=== PATIENT | female | born 1990 | race Caucasian/White ===

== ENCOUNTER 2016-09-24 10:06 | Emergency (ER) | payer MEDICAID, OTHER, SELFPAY ==
[~2016-09-24] VITALS: Ht 170.2 cm; Wt 66.0 kg
[2016-09-24] MEDS ORDERED: ALBU90AE INH (11:00)
[2016-09-24] MEDS ORDERED: NORG1TAB29 PO (11:12)
[2016-09-24 11:55] LABS: BLOOD UREA NITROGEN 10 mg/dL (7-18)
[2016-09-24 12:02] LABS: IS PT STATUS REG ER OR PRE ER? YES
[2016-09-24 13:44] VITALS: BP 123/73
== END 2016-09-24 13:46 | disposition home or self-care (01) ==
LOC: ED 12:02
DX: R00.2 Palpitations (principal); R42 Dizziness and giddiness; R07.9 Chest pain, unspecified
CPT/HCPCS: 36415; 71010; 80048; 81001; 82040; 84439; 84443; 84484; 84703; 85025; 87086; 93005; 99285

== ENCOUNTER → 2019-12-31 | Outpatient (CLI) | payer OTHER ==
[~2019-12-31] MED LIST: ALBU90AE INH; NORG1TAB29 PO
== END | disposition home or self-care (01) ==
LOC: STAR 15:45
PROVIDERS: ATTEND Obstetrics & Gynecology
DX: Z01.812 Encounter for preprocedural laboratory examination (principal); Z20.828 Contact with and (suspected) exposure to other viral communicable diseases
CPT/HCPCS: 36415; 87635

== ENCOUNTER 2020-01-02 18:27 | Outpatient (CLI) | payer OTHER ==
[~2020-01-02] VITALS: Ht 170.2 cm; Wt 85.4 kg
== END 2020-01-02 21:18 | disposition home or self-care (01) ==
LOC: LDOP 18:27
PROVIDERS: ATTEND Obstetrics & Gynecology
DX: O26.893 Other specified pregnancy related conditions, third trimester (principal); R10.9 Unspecified abdominal pain; Z3A.39 39 weeks gestation of pregnancy
CPT/HCPCS: 59025

== ENCOUNTER 2020-01-04 09:16 | Inpatient (IN) | payer OTHER ==
[~2020-01-04] VITALS: Ht 167.6 cm; Wt 81.8 kg
[2020-01-04] MEDS ORDERED: PROMETHAZINE 25 MG/ML, 1ML IM ONE (09:30)
[2020-01-04] MEDS ORDERED: MEPERIDINE/PF 100 MG/ML IM PRN (09:30)
[2020-01-04] MEDS ORDERED: PROMETHAZINE 25 MG/ML, 1ML ONE (09:40)
[2020-01-04] MEDS ORDERED: MEPERIDINE/PF 100 MG/ML ONE (09:40)
[2020-01-04 09:59] VITALS: BP 122/73
[2020-01-04] MEDS ORDERED: PLEASE ENTER HEIGHT AND WEIGHT MC SCH (10:00)
[2020-01-04] MEDS ORDERED: MISOPROSTOL 200 MCG TABLET ONE (12:09)
[2020-01-04] MEDS ORDERED: FENTANYL PF 100 MCG/2ML ONE (12:09)
[2020-01-04] MEDS ORDERED: NEWBORN KIT ONE (12:09)
[2020-01-04] MEDS ORDERED: LIDOCAINE 1%, 20ML ONE (12:09)
[2020-01-04] MEDS ORDERED: OXYTOCIN 30U/ 0.9% NaCL 500ML 500 ML ONE (12:10)
[2020-01-04] MEDS ORDERED: METOCLOPRAMIDE 5 MG/ML, 2ML IVPush PRN (12:30)
[2020-01-04] MEDS ORDERED: ONDANSETRON 2MG/ML, 2ML IVPush PRN (12:30)
[2020-01-04] MEDS ORDERED: FENTANYL PF 100 MCG/2ML IVPush PRN (12:30)
[2020-01-04] MEDS ORDERED: FENTANYL PF 100 MCG/2ML IV PRN (12:30)
[2020-01-04] MEDS ORDERED: LACTATED RINGERS 1,000 ML IV SCH ×2 (12:30→13:30)
[2020-01-04] MEDS ORDERED: D5%-LACTATED RINGERS 1,000 ML IV SCH (12:30)
[2020-01-04] MEDS ORDERED: TERBUTALINE 1 MG/ML, 1ML SQ PRN (12:30)
[2020-01-04] MEDS ORDERED: CALCIUM CARBONATE 500 MG TAB.CHEW PO PRN (12:30)
[2020-01-04] MEDS ORDERED: OXYTOCIN 30U/ 0.9% NaCL 500ML 500 ML IV PRN ×2 (12:30→20:30)
[2020-01-04] MEDS ORDERED: OXYTOCIN 30U/ 0.9% NaCL 500ML 500 ML IV ONE (12:30)
[2020-01-04] MEDS ORDERED: TERBUTALINE 1 MG/ML, 1ML IVPush PRN (12:30)
[2020-01-04] MEDS ORDERED: SODIUM CITRATE/CITRIC ACID 30 ML UDC PO PRN (12:30)
[2020-01-04 12:32] LABS: BASOPHILS % (AUTO) 0 % (0-1); EOSINOPHILS % (AUTO) 0 % (1-7); LYMPHOCYTES % (AUTO) 7 % (22-44); MEAN CORPUSCULAR HEMOGLOBIN 29.2 pg (27.0-34.8); MEAN CORPUSCULAR HGB CONC 32.9 g/dL (32.4-35.8); MEAN PLATELET VOLUME 7.3 fL (7.4-10.4); MONOCYTES % (AUTO) 3 % (2-9); NEUTROPHILS % (AUTO) 90 % (42-75); PLATELET COUNT 364 x10^3/uL (130-400); RED BLOOD COUNT 4.75 x10^6/uL (3.82-5.3); RED CELL DISTRIBUTION WIDTH 13.8 % (9.6-15.2)
[2020-01-04] MEDS ORDERED: FENTANYL/BUPIV./NS/PF 250 ML EPIDCONT ONE (12:48)
[2020-01-04] MEDS ORDERED: BUPIVACAINE 0.25% ONE ×4 (12:48→21:23)
[2020-01-04 13:01] LABS: MD SCAN
[2020-01-04] MEDS ORDERED: ONDANSETRON 2MG/ML, 2ML ONE (13:21)
[2020-01-04] MEDS ORDERED: EPHEDRINE 50 MG/ML, 1ML ONE (13:27)
[2020-01-04] MEDS ORDERED: EPHEDRINE 50 MG/ML, 1ML IVPush PRN (13:30)
[2020-01-04] MEDS ORDERED: FENTANYL/BUPIV./NS/PF 250 ML EPIDCONT SCH (13:30)
[2020-01-04] MEDS ORDERED: LACTATED RINGERS 1,000 ML IVBOLUS PRN (13:30)
[2020-01-04 19:35] VITALS: BP 129/89
[2020-01-05] MEDS ORDERED: MISOPROSTOL 200 MCG TABLET PR PRN ×6 (00:30→01:00)
[2020-01-05] MEDS ORDERED: OXYcodone IR 5MG TABLET PO PRN ×5 (00:30)
[2020-01-05] MEDS ORDERED: SIMETHICONE 80 MG CHEW TAB PO PRN ×11 (00:30→01:00)
[2020-01-05] MEDS ORDERED: ACETAMINOPHEN 325 MG TABLET PO PRN ×7 (00:30→01:00)
[2020-01-05] MEDS ORDERED: ONDANSETRON 2MG/ML, 2ML IV PRN ×6 (00:30→01:00)
[2020-01-05] MEDS ORDERED: IBUPROFEN 600 MG TABLET PO PRN ×5 (00:30)
[2020-01-05] MEDS ORDERED: OXYTOCIN 30U/ 0.9% NaCL 500ML 500 ML IV SCH ×10 (00:30)
[2020-01-05] MEDS ORDERED: OXYcodone/APAP 5/325MG TABLET PO PRN ×6 (00:30→01:00)
[2020-01-05] MEDS ORDERED: DOCUSATE 100 MG CAPSULE PO PRN ×10 (00:30)
[2020-01-05] MEDS: OXYTOCIN 30U/ 0.9% NaCL 500ML 500 ML IV SCH ×3 (01:00→21:00)
[2020-01-05] MEDS ORDERED: IBUPROFEN 600 MG TABLET ONE (01:30)
[2020-01-05] MEDS: IBUPROFEN 600 MG TABLET PO PRN ×3 (01:32→16:15)
[2020-01-05 02:25] VITALS: BP 110/71
[2020-01-05 07:50] LABS: BASOPHILS % (AUTO) 1 % (0-1); EOSINOPHILS % (AUTO) 0 % (1-7); LYMPHOCYTES % (AUTO) 10 % (22-44); MEAN CORPUSCULAR HEMOGLOBIN 29.8 pg (27.0-34.8); MEAN CORPUSCULAR HGB CONC 33.6 g/dL (32.4-35.8); MEAN PLATELET VOLUME 6.8 fL (7.4-10.4); MONOCYTES % (AUTO) 7 % (2-9); NEUTROPHILS % (AUTO) 82 % (42-75); PLATELET COUNT 308 x10^3/uL (130-400); RED BLOOD COUNT 3.93 x10^6/uL (3.82-5.3)
[2020-01-05 08:09] LABS: MD SCAN
[2020-01-05 08:30] VITALS: BP 98/67
[2020-01-05] MEDS: PRENATAL VIT/IRON/FA 1 EACH TABLET PO SCH (08:39)
[2020-01-05] MEDS: DOCUSATE 100 MG CAPSULE PO PRN ×2 (08:39→21:04)
[2020-01-05] MEDS ORDERED: PRENATAL VIT/IRON/FA 1 EACH TABLET PO SCH ×10 (09:00)
[2020-01-05 12:42] VITALS: BP 99/64
[2020-01-05 16:30] VITALS: BP 103/70
[2020-01-05 20:00] VITALS: BP 106/68
[2020-01-06 00:09] VITALS: BP 104/70
[2020-01-06] MEDS: IBUPROFEN 600 MG TABLET PO PRN (06:38)
[2020-01-06] MEDS: OXYTOCIN 30U/ 0.9% NaCL 500ML 500 ML IV SCH (07:00)
[2020-01-06 07:50] VITALS: BP 106/68
[2020-01-06] MEDS: PRENATAL VIT/IRON/FA 1 EACH TABLET PO SCH (09:00)
[2020-01-06] MEDS ORDERED: IBUP-1222 PO (12:13)
== END 2020-01-06 13:05 | disposition home or self-care (01) | DRG 807 ==
LOC: LDOP 09:16 → LDIP 11:55 → 2NW 01-05 06:21
PROVIDERS: ADMIT Obstetrics & Gynecology; ATTEND Obstetrics & Gynecology
PROC: 10E0XZZ Delivery of Products of Conception, External Approach (ICD-10-PCS; principal; 2020-01-05)
PROC: 3E0R3BZ Introduction of Anesthetic Agent into Spinal Canal, Percutaneous Approach (ICD-10-PCS; 2020-01-05)
PROC: 00HU33Z Insertion of Infusion Device into Spinal Canal, Percutaneous Approach (ICD-10-PCS; 2020-01-05)
DX: O70.1 Second degree perineal laceration during delivery (principal); Z37.0 Single live birth; Z3A.39 39 weeks gestation of pregnancy
CPT/HCPCS: 36415; J7121; 85025; 86592; 86850; 86900; G0378; J2550; J3010; J2175; J2590; J7120

== ENCOUNTER 2020-01-08 02:57 | Emergency (ER) | payer OTHER ==
[~2020-01-08] VITALS: Ht 170.2 cm; Wt 81.1 kg
[~2020-01-08 02:57] MED LIST changes: +IBUP-1222 PO
--- NOTE | 2020-01-08 03:29 | NUR ---
PT CC OF VAGINAL BLEEDING STARTING TONIGHT. PT IS 2 DAYS POST FROM VAGINAL DELIVERY WITH TEARRING AND REPAIRED. PT HAS SOAKED 1 PAD WITH EVI RED BLOOD. PT ALSO COMPLAINS OF "FEELING LIKE MY BLOOD PRESSURE IS DROPPING". MOTHER AND BABY AT BEDSIDE
[2020-01-08] MEDS ORDERED: ONDANSETRON ODT 4 MG PO ONE (03:30)
[2020-01-08] MEDS ORDERED: ONDANSETRON ODT 4 MG ONE (03:37)
[2020-01-08 03:41] LABS: BASOPHILS % (AUTO) 1 % (0-1); EOSINOPHILS % (AUTO) 2 % (1-7); LYMPHOCYTES % (AUTO) 10 % (22-44); MEAN CORPUSCULAR HEMOGLOBIN 29.4 pg (27.0-34.8); MEAN CORPUSCULAR HGB CONC 33.2 g/dL (32.4-35.8); MEAN PLATELET VOLUME 6.9 fL (7.4-10.4); MONOCYTES % (AUTO) 4 % (2-9); NEUTROPHILS % (AUTO) 83 % (42-75); PLATELET COUNT 394 x10^3/uL (130-400); RED BLOOD COUNT 4.25 x10^6/uL (3.82-5.3); RED CELL DISTRIBUTION WIDTH 13.8 % (9.6-15.2)
[2020-01-08 03:43] LABS: MD NO
[2020-01-08 03:46] LABS: ANION GAP 6 mmol/L (5-15); CALCIUM 8.8 mg/dL (8.5-10.1); CHLORIDE 108 mmol/L (98-107)
--- NOTE | 2020-01-08 04:27 | NUR ---
PT COMPLAINING OF CHILLS AND SHAKING AND THEN MOMENTS LATER WILL COMPLAIN OF HOT FLASHES. VSS. MOTHER AND BABY AT BEDSIDE. PT COMPLAINING OF NOT BEING ABLE TO SLEEP AT HOME LONGER THAN 45 MIN. STATES ZOFRAN DIDNT HELP WITH NAUSEA. AWARE
[2020-01-08 05:08] VITALS: BP 123/90
== END 2020-01-08 05:11 | disposition home or self-care (01) ==
LOC: ED 03:54
DX: O72.1 Other immediate postpartum hemorrhage (principal); N95.1 Menopausal and female climacteric states; R11.0 Nausea; R42 Dizziness and giddiness; R10.9 Unspecified abdominal pain
CPT/HCPCS: 36415; 80048; 85025; 99283; Q0162